=== PATIENT | female | born 1990 | race Caucasian/White ===

== ENCOUNTER 2016-12-18 17:37 | Emergency (ER) | payer MEDICAID, OTHER ==
[~2016-12-18] VITALS: Ht 170.2 cm; Wt 64.0 kg
[~2016-12-18 17:37] MED LIST: ALPR0.5T8 PO; AMPH20TA3 PO; BUPR150T5 PO; CITA10TA17 PO; FERR325C PO; LORA2TAB95 PO; MIRT30TA PO; PHEN100C4 PO; QUET100T PO
--- NOTE | 2016-12-18 18:32 | NUR ---
Patient is resting comfortably on gurney while using personal cell-phone,NAD
--- NOTE | 2016-12-18 18:58 | NUR ---
Patient's boyfriend/partner is now at patient's bedside. Patient's boyfriend also came to our ER today for medication refill. Patient is resting on ROBERT roy.
--- NOTE | 2016-12-18 19:20 | NUR ---
Patient agitated regarding wait time, yelling in room stating "I'm bi-polar, this is just how I am and I'm not going to stop until the doctor comes in." Education provided regarding the safety of staff and patients, patient decided to exit the building and smoke a cigarette.
--- NOTE | 2016-12-18 19:30 | NUR ---
Patient returned to room 5A. 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
--- NOTE | 2016-12-18 19:39 | NUR ---
Pt seen by Dr. Gale. Pt stable for discharge per MD. Pt given ACI. Pt verbalized understanding of dc instructions. Pt ambulated out of ER with steady gait.
[2016-12-18 19:41] VITALS: BP 119/94
== END 2016-12-18 19:41 | disposition home or self-care (01) ==
LOC: ER 17:38
DX: G47.00 Insomnia, unspecified (principal); F31.9 Bipolar disorder, unspecified; R56.9 Unspecified convulsions; K21.9 Gastro-esophageal reflux disease without esophagitis; F17.200 Nicotine dependence, unspecified, uncomplicated
CPT/HCPCS: A4663